=== PATIENT | male | born 1990 | race Caucasian/White ===

== ENCOUNTER 2018-02-05 18:33 | Emergency (ER) | payer BC ==
[~2018-02-05] VITALS: Ht 180.3 cm; Wt 81.8 kg
[2018-02-05 19:21] LABS: HEMATOCRIT 37.9 % (39.0-50.0); HEMOGLOBIN 13.2 g/dl (14.0-18.0); IMMATURE GRANULOCYTES 0.2 % (0.0-5.0); MEAN CORPUSCULAR HGB CONC 34.8 g/L CALC (32.0-36.0); NEUT# 2.53 thou/uL (1.82-7.42); RED BLOOD COUNT 4.26 mill/uL (4.70-6.10); RED CELL DISTRI WIDTH 12.4 % (11.5-15.5)
[2018-02-05 19:34] LABS: ANION GAP 13 (6-22 (CALC)); BUN 14 mg/dL (9-20); BUN/CREATININE RATIO 14 (12-20 (CALC)); CARBON DIOXIDE 26 mmol/l (22-30); CHLORIDE 105 mmol/l (95-108); GFR > 60 ML/MIN (>=60 (CALC)); GFR FOR AFR.AMER. > 60 ML/MIN (>=60 (CALC)); POTASSIUM 3.7 mmol/l (3.5-5.1); SODIUM 141 mmol/l (137-146)
[2018-02-05 20:31] LABS: BARBITURATES NEGATIVE (NEGATIVE); COCAINE NEGATIVE (NEGATIVE); METHADONE NEGATIVE (NEGATIVE); OXCYCODONE NEGATIVE (NEGATIVE); TETRAHYDROCANNABIONOL NEGATIVE (NEGATIVE); TRICYLIC ANTIDEPRESSANTS NEGATIVE (NEGATIVE)
[2018-02-05 21:03] VITALS: BP 131/72
== END 2018-02-05 21:09 | disposition home or self-care (01) | DRG 313 ==
LOC: ED 18:33
PROVIDERS: Family Medicine
DX: R07.89 Other chest pain (principal)

== ENCOUNTER 2019-03-31 15:53 | Emergency (ER) | payer BC ==
[~2019-03-31] VITALS: Ht 180.3 cm; Wt 85.0 kg
[2019-03-31] MEDS ORDERED: CYMBALTA60 MG PO (16:12)
[2019-03-31] MEDS ORDERED: KLONOPIN WAF0.25 MG PO (16:13)
[2019-03-31 16:46] VITALS: BP 137/82
== END 2019-03-31 16:58 | disposition home or self-care (01) | DRG 563 ==
LOC: ED 15:53
DX: S93.401A Sprain of unspecified ligament of right ankle, initial encounter (principal); X50.0XXA Overexertion from strenuous movement or load, initial encounter; Y93.67 Activity, basketball

== ENCOUNTER 2019-04-13 14:39 | Emergency (ER) | payer BC ==
[~2019-04-13 14:39] MED LIST: CYMBALTA60 MG PO; KLONOPIN WAF0.25 MG PO
== END 2019-04-13 14:50 | disposition left against medical advice (07) | DRG 951 ==
LOC: ED 14:39 → LWOBS 14:49
DX: Z53.21 Procedure and treatment not carried out due to patient leaving prior to being seen by health care provider (principal)

== ENCOUNTER 2019-07-30 | Day surgery (SDC) | payer OTHER ==
[~2019-07-30] MED LIST changes: +ZYRTEC10 MG PO
[2019-07-30] MEDS ORDERED: PERCOCET 10/31 COMBO PO (11:43)
== END 2019-07-30 12:30 | disposition home or self-care (01) | DRG 730 ==
PROC: 0VBQ3ZZ Excision of Bilateral Vas Deferens, Percutaneous Approach (ICD-10-PCS; principal; 2019-07-30)
DX: Z30.2 Encounter for sterilization (principal)

== ENCOUNTER 2019-12-23 08:38 | Emergency (ER) | payer OTHER ==
[~2019-12-23] VITALS: Ht 180.3 cm; Wt 85.0 kg
[~2019-12-23 08:38] MED LIST changes: +PERCOCET 10/31 COMBO PO
[2019-12-23 09:13] LABS: HEMOGLOBIN 14.5 g/dl (14.0-18.0); IMMATURE GRANULOCYTES 0.2 % (0.0-5.0); MEAN CELL VOLUME 89.5 fL CALC (80.0-100.0); MEAN CORPUSCULAR HGB 29.4 pG CALC (26.0-32.0); MEAN CORPUSCULAR HGB CONC 32.8 g/dL CAL (32.0-36.0); NEUT# 2.16 thou/uL (1.82-7.42); RED BLOOD COUNT 4.94 mill/uL (4.70-6.10)
[2019-12-23 09:14] LABS: HEMATOCRIT 44.2 % (39.0-50.0)
[2019-12-23 09:37] LABS: PROTHROMBIN TIME 10.4 SECONDS (9.0-12.5)
[2019-12-23 09:38] LABS: ALBUMIN 4.7 g/dL (3.2-5.0); ALKALINE PHOSPHATASE 59 u/l (38-126); ANION GAP 12 (6-22 (CALC)); BILIRUBIN, TOTAL 0.6 mg/dL (0.0-1.4); BUN 13 mg/dL (9-20); BUN/CREATININE RATIO 10 (12-20 (CALC)); CARBON DIOXIDE 31 mmol/l (22-30); CHLORIDE 101 mmol/l (95-108); CREATININE 1.3 mg/dL (0.7-1.3); GFR > 60 ML/MIN (>=60 (CALC)); GFR FOR AFR.AMER. > 60 ML/MIN (>=60 (CALC)); POTASSIUM 4.1 mmol/l (3.5-5.1); SGOT/AST 49 u/l (17-59); SODIUM 140 mmol/l (137-146); TOTAL PROTEIN 7.5 g/dL (6.3-8.2)
[2019-12-23 10:30] VITALS: BP 127/73
== END 2019-12-23 10:35 | disposition home or self-care (01) | DRG 310 ==
LOC: ED 08:38
PROVIDERS: Student in an Organized Health Care Education/Training Program
DX: R00.2 Palpitations (principal); R07.9 Chest pain, unspecified; F41.9 Anxiety disorder, unspecified; F32.9 Major depressive disorder, single episode, unspecified

== ENCOUNTER 2021-04-02 16:23 | Emergency (ER) | payer OTHER ==
[~2021-04-02] VITALS: Ht 180.3 cm; Wt 93.0 kg
[2021-04-02] MEDS ORDERED: FLEXERIL5 M1 PO (19:59)
[2021-04-02] MEDS ORDERED: IBUPROFEN600 MG PO (19:59)
[2021-04-02 20:05] VITALS: BP 131/89
== END 2021-04-02 20:05 | disposition home or self-care (01) | DRG 552 ==
LOC: ED 16:23
DX: S16.1XXA Strain of muscle, fascia and tendon at neck level, initial encounter (principal); S39.012A Strain of muscle, fascia and tendon of lower back, initial encounter; F32.A Depression, unspecified; F41.9 Anxiety disorder, unspecified; V43.62XA Car passenger injured in collision with other type car in traffic accident, initial encounter

== ENCOUNTER 2021-04-28 08:58 | Emergency (ER) | payer OTHER ==
[~2021-04-28] VITALS: Ht 180.3 cm; Wt 95.0 kg
[~2021-04-28 08:58] MED LIST changes: +FLEXERIL5 M1 PO; +IBUPROFEN600 MG PO
[2021-04-28] MEDS ORDERED: MOTRIN800 MG PO (10:57)
[2021-04-28 11:05] VITALS: BP 150/94
== END 2021-04-28 11:30 | disposition home or self-care (01) | DRG 563 ==
LOC: ED 08:58
DX: S83.92XA Sprain of unspecified site of left knee, initial encounter (principal); F32.A Depression, unspecified; F41.9 Anxiety disorder, unspecified; X50.1XXA Overexertion from prolonged static or awkward postures, initial encounter; Y93.67 Activity, basketball; Y92.830 Public park as the place of occurrence of the external cause
CPT/HCPCS: L1830

== ENCOUNTER 2022-10-06 11:00 | Emergency (ER) | payer OTHER ==
[~2022-10-06] VITALS: Ht 180.3 cm; Wt 101.6 kg
[~2022-10-06 11:00] MED LIST changes: +MOTRIN800 MG PO
[2022-10-06 11:30] VITALS: BP 130/96
[2022-10-06 11:45] VITALS: BP 147/97
[2022-10-06 12:00] VITALS: BP 138/96
[2022-10-06 12:15] VITALS: BP 135/99
[2022-10-06 13:10] VITALS: BP 135/99
== END 2022-10-06 13:10 | disposition home or self-care (01) | DRG 605 ==
LOC: ED 11:00
DX: S40.012A Contusion of left shoulder, initial encounter (principal); F41.9 Anxiety disorder, unspecified; F32.A Depression, unspecified; W20.8XXA Other cause of strike by thrown, projected or falling object, initial encounter; Y93.H9 Activity, other involving exterior property and land maintenance, building and construction

== ENCOUNTER 2023-02-18 10:16 | Day surgery (SDC) | payer OTHER ==
[~2023-02-18] VITALS: Ht 180.3 cm; Wt 94.3 kg
[2023-02-18] MEDS ORDERED: PERCOCET 5/325M1 TAB PO (12:13)
[2023-02-18 15:02] VITALS: BP 119/76
== END 2023-02-18 14:57 | disposition home or self-care (01) | DRG 355 ==
LOC: ORM 10:16
PROVIDERS: ATTEND Surgery
PROC: 0WUF0JZ Supplement Abdominal Wall with Synthetic Substitute, Open Approach (ICD-10-PCS; principal; 2023-02-18)
DX: K43.0 Incisional hernia with obstruction, without gangrene (principal); M62.08 Separation of muscle (nontraumatic), other site; F41.9 Anxiety disorder, unspecified; F32.A Depression, unspecified
CPT/HCPCS: J0131; J0690; J1100; J2710

== ENCOUNTER 2023-02-20 17:20 | Emergency (ER) | payer OTHER ==
[~2023-02-20] VITALS: Ht 180.3 cm; Wt 95.0 kg
[~2023-02-20 17:20] MED LIST changes: +PERCOCET 5/325M1 TAB PO
[2023-02-20 18:10] VITALS: BP 148/94
[2023-02-20 18:15] VITALS: BP 132/95
[2023-02-20 18:30] VITALS: BP 136/95
[2023-02-20 18:45] VITALS: BP 122/78
[2023-02-20 20:09] VITALS: BP 122/78
== END 2023-02-20 20:21 | disposition home or self-care (01) | DRG 556 ==
LOC: ED 17:20
DX: M79.604 Pain in right leg (principal); M79.671 Pain in right foot; F41.9 Anxiety disorder, unspecified; F32.A Depression, unspecified; Z98.890 Other specified postprocedural states

== ENCOUNTER 2023-06-19 21:16 | Emergency (ER) | payer OTHER ==
[~2023-06-19] VITALS: Ht 180.3 cm; Wt 104.3 kg
[2023-06-19 22:35] LABS: BASO% 1.1 % (0-3); EOS% 3.6 % (0-8); HEMATOCRIT 41.2 % (39.0-50.0); HEMOGLOBIN 13.6 g/dl (14.0-18.0); IMMATURE GRANULOCYTES 0.1 % (0.0-5.0); LYMPH% 30.9 % (15-41); MEAN CELL VOLUME 88.6 fL CALC (80.0-100.0); MEAN CORPUSCULAR HGB 29.2 pG CALC (26.0-32.0); MONO% 10.1 % (2-13); NEUT# 3.94 thou/uL (1.82-7.42); NEUT% 54.2 % (42-76); RED BLOOD COUNT 4.65 mill/uL (4.70-6.10); RED CELL DISTRI WIDTH 12.4 % (11.5-15.5)
[2023-06-19 23:05] VITALS: BP 138/97
== END 2023-06-19 23:10 | disposition home or self-care (01) | DRG 153 ==
LOC: ED 21:16
PROVIDERS: Family Medicine
DX: J04.0 Acute laryngitis (principal); Z20.822 Contact with and (suspected) exposure to COVID-19